=== PATIENT | male | born 1980 | race Caucasian/White ===

== ENCOUNTER → 2016-09-25 | Outpatient (CLI) | payer OTHER | LOC: FIMAGING 07:44 | PROVIDERS: ATTEND Psychiatry & Neurology Neurology | DX: R40.20 Unspecified coma (principal) ==

== ENCOUNTER → 2016-10-04 | Outpatient (CLI) | payer OTHER ==
--- NOTE | 2016-10-04 14:59 | CPEEG ---
[f rep st] ELECTROENCEPHALOGRAM 4-HOUR VIDEO ELECTROENCEPHALOGRAM DATE OF STUDY: 10/04/2016 DATE OF INTERPRETATION: 10/04/2016. INTERPRETATION: This 4-hour video EEG recording is normal. There were no potentially epileptogenic abnormalities present in the awake or sleep recordings. During the video EEG monitoring session, t he patient did not have any clinical events. REPORT: This 4-hour video EEG contains 10-11 Hz alpha to posterior head regions. There was no abno rmal activation at rest, during photic stimulation or hyperventilation. The patient became drowsy a nd fell into sustained sleep during the study. There was no activation in drowsiness, sleep, or dur ing times of arousal. The patient did not have any clinical events during the video EEG monitoring session. /[id number]/MODL
== END ==
LOC: FCPNEURO 08:59
PROVIDERS: ATTEND Psychiatry & Neurology Neurology
DX: R55 Syncope and collapse (principal)